=== PATIENT | male | born 2000 | race Caucasian/White ===

== ENCOUNTER 2025-01-19 15:24 | Emergency (ER) | payer OTHER ==
[~2025-01-19] VITALS: Ht 177.8 cm; Wt 75.9 kg
[2025-01-19] MEDS ORDERED: ERYT5OIN25 OS (17:03)
[2025-01-19] MEDS: ERYTHROMYCIN OPHTH OINT OS ONE (17:15)
[2025-01-19 17:17] VITALS: BP 140/90; TEMP 98.7; O2SAT 99
== END 2025-01-19 17:20 | disposition home or self-care (01) ==
LOC: M ED 15:24
DX: H10.32 Unspecified acute conjunctivitis, left eye (principal); H00.014 Hordeolum externum left upper eyelid; Z79.2 Long term (current) use of antibiotics